=== PATIENT | female | born 1975 | race Caucasian/White ===

== ENCOUNTER 2025-05-05 06:14 | Day surgery (SDC) | payer BC, SELFPAY ==
[2025-04-27 09:41] VITALS: BMI 29.8
[2025-04-27 11:56] LABS: Hematocrit 39.6 % (37.0-47.0); Hemoglobin 13.5 g/dL (12.0-16.0); Mean Corp Hgb Conc. 34.1 g/dL (33.0-37.0); Mean Corpuscular Volume 93.4 fL (81.0-99.0); Platelet Count 221 10^3/uL (130-400); Red Cell Dist. Width 11.9 % (11.5-14.5)
[2025-04-27 12:04] LABS: INR 1.08; PT 14.1 Sec (11.4-14.6)
[2025-04-27 12:05] LABS: APTT 29.2 Sec (23.4-35.0)
[2025-04-27 12:33] LABS: ALT (SGPT) 30 U/L (0-35); AST (SGOT) 35 U/L (14-36); Albumin 4.3 g/dl (3.5-5.0); Alkaline Phosphatase 74 U/L (38-126); Blood Urea Nitrogen 12 mg/dl (7-17); Calcium 9.2 mg/dl (8.4-10.2); Carbon Dioxide 28 mmol/L (22-30); Chloride 104 mmol/L (98-107); Estimated Creatinine Clearance 88 ml/min; Glucose 86 mg/dl (70-99); Potassium 4.5 mmol/L (3.5-5.1); Sodium 139 mmol/L (135-145); Total Protein 6.9 g/dl (6.3-8.2); eGFR > 60.00
[2025-05-05] VITALS (8 sets, daily range): BP systolic 115–155; BP diastolic 74–93; BMI 29.8
[2025-05-05 11:04] LABS: Glucose - Point of Care 72 mg/dl (70-99)
[2025-05-05] MEDS: NORMOSOL-R/PLASMALYTE-A 1000 IV (11:10)
[2025-05-05] MEDS: NEURONTIN 300 MG PO (11:29)
[2025-05-05] MEDS: TYLENOL 650 MG PO (11:29)
[2025-05-05] MEDS: HEPARIN 5000 UNITS SC (12:05)
--- NOTE | 2025-05-05 14:02 | OR.RPT ---
Operative Report
Operative Report
DATE OF OPERATION: May 05, 2025
PREOPERATIVE DIAGNOSIS: Left Thyroid Mass - E041
POSTOPERATIVE DIAGNOSIS: Same
SURGEON: Donal Robertson M.D.
OPERATION: Left Thyroidectomy and Left Level Limited Neck Dissection - 22950
ANESTHESIA: GET
ESTIMATED BLOOD LOSS: 10 cc
DRAINS: None
SPECIMEN: left total thyroid lobe and isthmus, and left level paratracheal tissue
FINDINGS: large left substernal goiter
COMPLICATIONS: None
PROCEDURE:
The patient was taken to the operating room and placed in the usual supine position. After adequate general endotracheal anesthesia was established, the patient�s neck was extended, prepped, and draped in the typical sterile fashion. A 5 cm
transcervical incision was made two fingerbreadths above the sternal notch. The skin incision was made with the #15 blade, which was taken through the skin into the subcutaneous tissue. The underlying platysma muscle was divided, and subplatysmal
flaps were created superiorly to the thyroid cartilage and inferiorly to the sternal notch. Strap muscles were identified and at the midline.
Attention was turned to the patient�s left thyroid lobe. The left thyroid lobe was mobilized medially. During this process, the left middle thyroid vein and inferior thyroid artery were dissected and ligated with Ligasure. There was a substernal
extension, which was delivered out of the mediastinum through the cervical incision. Next, the left superior pole was taken down by dissecting and transecting the superior pole vessels with a Ligasure. The left thyroid lobe was mobilized medially.
During this process, the left recurrent laryngeal nerve was identified and preserved throughout its entire course. The left superior and inferior parathyroid glands were identified and preserved. The left thyroid lobe with isthmus was resected from
the trachea and sent to the pathology department.
At this time, the left neck dissection was performed. The tissue between the left carotid artery to the trachea into the anterior mediastinum was carefully dissected. The previously identified recurrent laryngeal nerve and parathyroid glands were
preserved. The tissue was removed and sent to the pathology department.
After achieving adequate hemostasis, the strap muscle was approximated with #3-0 Vicryl in a running fashion, and the platysma muscles were reapproximated with #3-0 Vicryl in an interrupted manner. The skin was then closed with #4-0 Monocryl in a
running subcuticular technique. Steri-strips and sterile dressings were applied. The patient tolerated the procedure well. The final instrument, needle, and sponge counts were correct.
[2025-05-05] MEDS: DILAUDID 0.5 MG IV (14:09)
[2025-05-05 14:12] LABS: Glucose - Point of Care 101 mg/dl (70-99)
== END 2025-05-05 15:38 | disposition home or self-care (01) ==
LOC: SDS 06:14
PROVIDERS: ATTENDING PHYSICIAN Surgery; FAMILY PHYSICIAN Physician Assistant Medical
DX: C73 Malignant neoplasm of thyroid gland (principal); E04.2 Nontoxic multinodular goiter; R49.0 Dysphonia
CPT/HCPCS: 60220; 36415; 80053; 82962; 85027; 85610; 85730; 88307; 88311; 93005